=== PATIENT | male | born 1970 | race Caucasian/White ===

== ENCOUNTER 2020-01-01 02:29 | Emergency (ER) | payer MEDICAID ==
[~2020-01-01] VITALS: Ht 175.3 cm; Wt 79.4 kg
[2020-01-01 02:41] VITALS: BP_SYST 144
--- NOTE | 2020-01-01 02:41 | NUR ---
Patient to ER bed 5 to gown for evaluation. Side rails up. Report given to JULIO CASH.
--- NOTE | 2020-01-01 02:53 | NUR ---
ER at bedside examining patient.
[2020-01-01] MEDS ORDERED: SILVER SULFADIAZINE 1%, 25 GM TOPICAL CREAM (SSD) TP ONE (03:15)
[2020-01-01] MEDS ORDERED: HYDROcodone/ACETAMIN 7.5-325 MG TAB PO ONE (03:15)
--- NOTE | 2020-01-01 03:56 | NUR ---
PT IN [facility], NO ACUTE DISTRESS. WOUND TO LEFT LOWER LEG OPEN, WITH WHITISH COLOR SURROUNDED BY REDNESS. NO BLEEDING NOTED. WOULD CLEANED WITH BETADINE AND STERILE WATER. MEDICATED WITH SILVADINE OINT ORDERED AND WRAPPED WITH NON-ADHERANT DRESSING AND KERLEX. CMS INTACT.
--- NOTE | 2020-01-01 03:58 | NUR ---
PT ELOPED WITHOUT INSTRUCTIONS.
== END 2020-01-01 03:58 | disposition left against medical advice (07) ==
LOC: SED 02:29
DX: T24.202A Burn of second degree of unspecified site of left lower limb, except ankle and foot, initial encounter (principal); T31.0 Burns involving less than 10% of body surface; S39.012A Strain of muscle, fascia and tendon of lower back, initial encounter; I10 Essential (primary) hypertension; F12.90 Cannabis use, unspecified, uncomplicated; F17.200 Nicotine dependence, unspecified, uncomplicated; Z88.5 Allergy status to narcotic agent; X08.8XXA Exposure to other specified smoke, fire and flames, initial encounter; Y93.89 Activity, other specified; Y92.89 Other specified places as the place of occurrence of the external cause; Y99.8 Other external cause status
CPT/HCPCS: 99283; J7030

== ENCOUNTER 2020-06-29 19:47 | Emergency (ER) | payer MEDICAID ==
[~2020-06-29] VITALS: Ht 175.3 cm; Wt 79.4 kg
[2020-06-29 19:51] VITALS: BP_SYST 153
[2020-06-29] MEDS ORDERED: HYDROcodone/ACETAMIN 5-325 MG TAB (NORCO/ VICODIN) PO ONE (20:00)
--- NOTE | 2020-06-29 20:10 | NUR ---
pt brought by , A&Ox4, pt presents to ER with lower back pain and snow hip pain after falling from 10-13 feet ladder, respirations even and unlabored, cap refill <3, VSS.
--- NOTE | 2020-06-29 20:15 | NUR ---
Dr Melvin evaluating patient in the triage room
[2020-06-29 20:26] VITALS: BP_SYST 153
--- NOTE | 2020-06-29 20:30 | NUR ---
pt Eloped from ER
== END 2020-06-29 20:30 | disposition left against medical advice (07) ==
LOC: SED 19:47
DX: M54.5 Low back pain (principal); W11.XXXA Fall on and from ladder, initial encounter; Y93.89 Activity, other specified; Y92.89 Other specified places as the place of occurrence of the external cause; Y99.8 Other external cause status
CPT/HCPCS: 99281

== ENCOUNTER 2023-10-12 00:21 | Emergency (ER) | payer SELFPAY ==
[~2023-10-12] VITALS: Ht 175.3 cm; Wt 78.0 kg
[2023-10-12 00:32] VITALS: BP_SYST 167; PULSE 87; RESP 20; TEMP 97.9; O2SAT 96
[2023-10-12] MEDS: MORPHINE 4 MG INJ. 4 MG/ML VIAL IM ONE (01:14)
[2023-10-12] MEDS: DEXAMETHASONE SOD PHOSPHATE 10 MG/ML VIAL IM ONE (01:14)
[2023-10-12 01:15] VITALS: BP_SYST 167; PULSE 87; RESP 20; TEMP 97.9; O2SAT 96
== END 2023-10-12 01:15 | disposition home or self-care (01) ==
LOC: SED 00:21
DX: M54.50 Low back pain, unspecified (principal); Z79.899 Other long term (current) drug therapy
CPT/HCPCS: 99284; 96372; J1100; J2270

== ENCOUNTER 2024-02-09 03:14 | Emergency (ER) | payer MEDICAID ==
[~2024-02-09] VITALS: Ht 175.3 cm; Wt 77.1 kg
[2024-02-09 03:27] VITALS: BP_SYST 150; PULSE 89; RESP 18; TEMP 98.1; O2SAT 98
[2024-02-09] MEDS ORDERED: KETOROLAC TROMETHAMINE 30 MG VIAL IM ONE (03:30)
[2024-02-09] MEDS: MORPHINE 2 MG/ML INJ. SYRINGE IM ONE (03:36)
[2024-02-09] MEDS ORDERED: METH-776 PO (03:39)
[2024-02-09] MEDS ORDERED: LIDO1ADH91 TD (03:39)
== END 2024-02-09 03:45 | disposition home or self-care (01) ==
LOC: SED 03:14
DX: M54.16 Radiculopathy, lumbar region (principal)
CPT/HCPCS: 99283; 96372; J2270